=== PATIENT | female | born 1975 ===

== ENCOUNTER 2022-09-04 07:09 | Day surgery (SDC) | payer OTHER ==
[~2022-09-04 07:09] MED LIST: SYNTHROID125 MCG PO; VITAMIN D PO
[2022-09-04] MEDS ORDERED: PERCOCET 5-3251 EACH PO (14:49)
== END 2022-09-04 17:35 | disposition home or self-care (01) ==
LOC: CIR.AMB 07:09
PROVIDERS: ATTEND Surgery
DX: E21.0 Primary hyperparathyroidism (principal); R59.0 Localized enlarged lymph nodes; Z88.8 Allergy status to other drugs, medicaments and biological substances; E03.9 Hypothyroidism, unspecified; G43.909 Migraine, unspecified, not intractable, without status migrainosus; Z20.822 Contact with and (suspected) exposure to COVID-19